=== PATIENT | male | born 1975 | race African-American/Black ===

== ENCOUNTER 2016-05-06 11:11 | Emergency (ER) | payer OTHER ==
[~2016-05-06] VITALS: Ht 193 cm; Wt 70.1 kg
[~2016-05-06 11:11] MED LIST: CLINDAMYCIN HC300 MG PO; CLONAZEPAM0.5 MG PO; CLONIDINE HCL0.2 MG PO; EFFEXOR75 MG PO; MIRTAZAPINE45 MG PO; NOHOMEMEDS; QUETIAPINE FUM300 MG PO
[2016-05-06 11:33] VITALS: BP 114/74
[2016-05-06] MEDS ORDERED: FLEXERIL5 MG PO (13:53)
[2016-05-06] MEDS ORDERED: NAPROSYN500 MG PO (13:53)
== END 2016-05-06 14:01 | disposition home or self-care (01) ==
LOC: EME 11:11
DX: S46.911A Strain of unspecified muscle, fascia and tendon at shoulder and upper arm level, right arm, initial encounter (principal); S46.912A Strain of unspecified muscle, fascia and tendon at shoulder and upper arm level, left arm, initial encounter; V43.62XA Car passenger injured in collision with other type car in traffic accident, initial encounter
CPT/HCPCS: 99281; 99283

== ENCOUNTER 2017-02-09 14:28 | Emergency (ER) | payer OTHER ==
[~2017-02-09] VITALS: Ht 193 cm; Wt 64.8 kg
[~2017-02-09 14:28] MED LIST changes: +FLEXERIL5 MG PO; +NAPROSYN500 MG PO
[2017-02-09] MEDS ORDERED: PREDNISONE10 M1 PO (15:33)
[2017-02-09 15:40] VITALS: BP 113/74
== END 2017-02-09 16:07 | disposition home or self-care (01) ==
LOC: EME 14:28
DX: J06.9 Acute upper respiratory infection, unspecified (principal)
CPT/HCPCS: 99281; 99283